=== PATIENT | male | born 1970 ===

== ENCOUNTER → 2023-03-30 10:10 | Outpatient (BNVA) | payer MEDICAID, SELFPAY | PROVIDERS: PCP Physician Assistant; Visit Provider Nurse Practitioner Family | DX: S43.101A Unspecified dislocation of right acromioclavicular joint, initial encounter; X58.XXXA Exposure to other specified factors, initial encounter; E11.9 Type 2 diabetes mellitus without complications; Z79.84 Long term (current) use of oral hypoglycemic drugs | CPT/HCPCS: 73030 ==

== ENCOUNTER 2024-06-23 14:32 | Outpatient (CLI) | payer MEDICAID, SELFPAY ==
--- NOTE | 2024-06-23 14:40 | XR_ITS ---
WS: [email or web address] Exam: XR lumbar spine 6V w f/e [id number] Date/Time of Exam: 06/23/2024 2:50 PM Reason For Exam: low back pain-m54.42 No fracture. Marked spondylosis at all levels. Mild disc base narrowing from L1-L5. Mild facet DJD. N o significant flexion or extension instability. IMPRESSION1. Degenerative changes. No fracture or instability.
--- NOTE | 2024-06-23 14:40 | XR_ITS ---
WS: [email or web address] Exam: XR cervical spine 4-5V [id number] Date/Time of Exam: 06/23/2024 2:50 PM Reason For Exam: neck pain-M.54.2, No fracture noted. Spondylosis from C2-C5. Mild facet DJD at all levels. No flexion or extension inst ability. Normal paraspinal soft tissues. The odontoid is unremarkable. Mild bilateral carotid artery calcifications. XR/XR cervical spine 4-5V [id number] IMPRESSION: 1. Minor degenerative changes as above. 2. No fracture or instability.
== END 2024-06-23 14:33 | disposition home or self-care (01) ==
LOC: RAD 14:34
PROVIDERS: PCP Physician Assistant; Visit Provider Nurse Practitioner
DX: M47.896 Other spondylosis, lumbar region (principal); M47.892 Other spondylosis, cervical region
CPT/HCPCS: 72050; 72114

== ENCOUNTER 2024-07-26 14:08 | Outpatient (CLI) | payer MEDICAID, SELFPAY ==
--- NOTE | 2024-07-26 14:18 | MR_ITS ---
WS: [id number] MRI CERVICAL SPINE NONCONTRAST TECHNIQUE: Sagittal T1, T2 and STIR imaging. Axial T2, gradient, and fiesta imaging. CLINICAL INFORMATION: CERVICALGIA COMPARISON: None. FINDINGS: Straightening of the normal cervical lordosis. Cord signal is normal. No high-grade central canal carmella rowing. C2-C3: Mild facet arthropathy. Spinal canal and foramen are patent. C3-C4: Moderate facet arthropathy. Mild LEFT greater than RIGHT bony foraminal narrowing. Spinal nikkie l is patent. C4-C5: Tiny central annular fissure. Mild disc bulging. Moderate facet arthropathy. Moderate LEFT and mild RIGHT foraminal narrowing. Mild facet arthropathy. C5-C6: Mild disc bulging with tiny central protrusion. Moderate facet arthropathy. Mild bilateral bon y foraminal narrowing. Spinal canal is patent. C6-C7: Mild disc bulging. Mild facet arthropathy. Spinal canal and foramina are patent. C7-T1: No significant disc bulging. Spinal canal and foramen are patent. Visualized brain stem structures: Normal. Prevertebral soft tissues: Normal. MR/MR cervical spin wo con* [id number] IMPRESSION: 1. Straightening of the normal cervical lordosis. Cord signal is normal. 2. Tiny central protrusion C4-5 with a tiny annular fissure. Spinal canal is p atent. 3. Mild to moderate bony foraminal narrowing worse at LEFT C3-C4 and LEFT C4-5 . Mild bilateral C5-C6.
== END 2024-07-26 14:09 | disposition home or self-care (01) ==
LOC: RAD 14:10
PROVIDERS: PCP Physician Assistant; Visit Provider Nurse Practitioner
DX: M47.892 Other spondylosis, cervical region (principal); M99.61 Osseous and subluxation stenosis of intervertebral foramina of cervical region; R93.89 Abnormal findings on diagnostic imaging of other specified body structures; R29.898 Other symptoms and signs involving the musculoskeletal system
CPT/HCPCS: 72141

== ENCOUNTER 2025-08-01 08:20 | Outpatient (CLI) | payer MEDICAID, SELFPAY ==
--- NOTE | 2025-08-01 08:27 | US_ITS ---
WS: [id number] RIGHT UPPER QUADRANT ULTRASOUND HISTORY: NAUSEA/VOMITING COMPARISON: None available. Liver: 18.5 cm in length. Enlarged liver with coarse echotexture. Deep liver towards the diaphragmatic surface is not well visualized due to attenuation. Portal Vein: Normal hepatopetal flow with monophasic waveform. Gallbladder: Normally distended gallbladder with no stones or wall thickening. CBD: 0.2 cm Pancreas: Not visualized. Right kidney: 13.5 cm in length. Normal size and echogenicity. No hydronephrosis or mass. Aorta and IVC: Unremarkable abdominal aorta and IVC. No ascites. US/US gall bladder [id number] IMPRESSION: 1. Normal gallbladder. 2. Mild hepatomegaly with diffuse hepatic steatosis. 3. No intrahepatic duct dilatation.
== END 2025-08-01 08:21 | disposition home or self-care (01) ==
LOC: RAD 08:22
PROVIDERS: PCP Nurse Practitioner; Visit Provider Nurse Practitioner
DX: R11.2 Nausea with vomiting, unspecified (principal); K76.0 Fatty (change of) liver, not elsewhere classified; R16.0 Hepatomegaly, not elsewhere classified
CPT/HCPCS: 76705